=== PATIENT | male | born 1985 | race Caucasian/White ===

== ENCOUNTER → 2025-08-03 | Emergency (ER) | payer OTHER, SELFPAY ==
[~2025-08-03] MED LIST: Albuterol 2.5 MG (3 mL) NEB ONE; Furosemide 40 MG (4 mL) VIAL ONE; Nitroglycerin 0.4 MG TAB 1 EACH ONE; Nitroglycerin 2% Ointment 1 INCH/1 GM Packet ONE; hydrALAZINE 20 MG/ML VIAL ONE
[2025-08-03 06:59] LABS: Actual Bicarbonate (HCO3v) 20.3 mEq/L (22-28); Analyzer IN Cardio CS ER; Base Excess -3.8 mEq/L (-2 - +2); Calcium, Ionized (venous) 1.11 mmol/L (1.16-1.32); Chloride (VBG) 103 mmol/L (98-106); Hematocrit-VBG 35 % (42.0-52.0); Hemoglobin (Hb) 11.9 g/dL (13.2-17.3); Potassium (VBG) 4.04 mmol/L (3.70-5.30); Puncture Site Other Site; RapidComm Collect By LAB; Sodium 134 mmol/L (133-146)
[2025-08-03 07:02] LABS: #Basophils 0.05 10x3/uL (0.0-0.2); #Eosinophils 0.61 10x3/uL (0.0-0.5); #Monocytes 1.03 10x3/uL (0.0-1.1); #Neutrophils 10.09 10x3/uL (1.5-8.4); %Basophils 0.4 % (0.0-2.0); %Eosinophils 4.8 % (0.0-6.0); %Lymphocytes 6.8 % (18.0-47.0); %Monocytes 8.1 % (0.0-10.0); %Neutrophils 79.3 % (40.0-75.0); Hematocrit 31.3 % (38.8-50.0); Hemoglobin 10.5 g/dL (13.5-17.5); Mean Corpuscular Hemoglobin 29.7 pg (27.0-33.0); Mean Corpuscular Volume 88.4 fL (81.2-95.1); Platelet Count 356 10x3/uL (150-450); Red Blood Cell (RBC) Count 3.54 10x6/uL (4.32-5.72); White Blood Cell (WBC) Count 12.72 10x3/uL (3.5-10.5)
[2025-08-03 07:35] LABS: ALT (SGPT) 60 U/L (Less than 45); AST (SGOT) 53 U/L (11-34); Albumin 2.8 g/dL (3.1-4.5); Alkaline Phosphatase 102 U/L (40-110); Anion Gap 17 mmol/L (10-20); BUN (Urea Nitrogen) 75 mg/dL (8.9-20.6); Bilirubin, Total 0.3 mg/dL (0.3-1.2); Calc. Creatinine Clearance 0 mL/min (70-130); Calcium 9.4 mg/dL (7.8-10.44); Carbon Dioxide 19 mmol/L (22-29); Chloride 105 mmol/L (98-107); Globulin 4.1 g/dL (2.4-3.5); Glucose 137 mg/dL (70-105); Magnesium 2.1 mg/dL (1.6-2.6); Potassium 4.2 mmol/L (3.5-5.1); Sodium 137 mmol/L (136-145)
[2025-08-03 07:40] LABS: Troponin I 0.121 ng/mL (< 0.028)
[2025-08-03 10:10] LABS: Cocaine Metabolite Screen Negative (Negative); THC/Cannabinoid Screen Negative (Negative); Tricyclic Screen Negative (Negative)
== END ==
LOC: CSHERS 06:27
DX: I13.2 Hypertensive heart and chronic kidney disease with heart failure and with stage 5 chronic kidney disease, or end stage renal disease (principal); E11.22 Type 2 diabetes mellitus with diabetic chronic kidney disease; N18.6 End stage renal disease; I50.9 Heart failure, unspecified; N17.9 Acute kidney failure, unspecified; I50.1 Left ventricular failure, unspecified; E87.70 Fluid overload, unspecified; J45.909 Unspecified asthma, uncomplicated; Z79.51 Long term (current) use of inhaled steroids; Z79.85 Long-term (current) use of injectable non-insulin antidiabetic drugs; Z79.84 Long term (current) use of oral hypoglycemic drugs; Z79.899 Other long term (current) drug therapy
CPT/HCPCS: 36415; 36416; 71045; 80053; 80306; 82805; 83605; 83735; 83880; 84484; 85025; 87040; 93005; 96374; 96375; J0360; J1940; J2250; J7611